=== PATIENT | female | born 1940 | race Caucasian/White ===

== ENCOUNTER → 2019-10-20 | Outpatient (CLI) | payer MEDICARE, OTHER ==
[~2019-10-20] MED LIST: METO50TA18 PO; PROP150T28 PO; TRIA1TAB5 PO; WARF-57 PO
== END | disposition home or self-care (01) ==
LOC: SHCH 08:43
PROVIDERS: ATTEND Internal Medicine Cardiovascular Disease
DX: I08.3 Combined rheumatic disorders of mitral, aortic and tricuspid valves (principal); I48.0 Paroxysmal atrial fibrillation
CPT/HCPCS: 93306

== ENCOUNTER 2019-12-04 05:36 | Observation (INO) | payer MEDICARE, OTHER ==
[2019-12-02 12:09] VITALS: BP 119/72
[2019-12-02 12:13] LABS: EOSINOPHILS % (AUTO) 2.4 % (0.0-8.0); HEMATOCRIT 48.8 % (36-48); LYMPHOCYTES % (AUTO) 40.4 % (21.0-51.0); MEAN CORPUSCULAR HEMOGLOBIN 30.9 pg (27.0-33.0); MEAN CORPUSCULAR HGB CONC 31.8 g/dL (32.0-36.0); MEAN CORPUSCULAR VOLUME 97.4 fL (79-99); MONOCYTES % (AUTO) 8.1 % (3.0-13.0); NEUTROPHILS % (AUTO) 47.9 % (40.0-77.0); PLATELET COUNT (AUTO) 128 K/uL (130-400); RED BLOOD CELL COUNT(AUTO) 5.01 MIL/uL (4.00-5.50); RED CELL DISTRIBUTION WIDTH 13.2 % (11.0-15.5); WHITE BLOOD COUNT (AUTO) 5.1 K/uL (4.8-10.8)
[2019-12-02 12:16] LABS: CREATININE 1.3 mg/dL (0.5-1.5); POTASSIUM 3.3 mmol/L (3.5-5.1)
[2019-12-02 12:23] LABS: INR 2.43 (0.85-1.15); PARTIAL THROMBOPLASTIN TIME 32.2 SEC (26.3-35.5); PROTHROMBIN TIME 24.7 SEC (9.6-11.6)
--- NOTE | 2019-12-03 10:34 | NUR ---
labs pt/inr reported to dr. larson further orders given and will carried out
--- NOTE | 2019-12-03 16:41 | NUR ---
LABS REPORTED ABNORMAL POTASSIUM/ PLATELET LEVEL. ORDERS RECEIVED TO REDRAW BMP ON DAY OF PROCEDURE.
[~2019-12-04] VITALS: Ht 175.3 cm; Wt 83.5 kg
[2019-12-04] VITALS (12 sets, daily range): BP systolic 97–131; BP diastolic 54–75
[2019-12-04] MEDS: VANCOMYCIN 1GM+NS 250ML 250 ML IV SCH (05:00)
[~2019-12-04 05:36] MED LIST changes: +ATOR40TA71 PO; +CARV12.511 PO; +FURO-151 PO; -METO50TA18 PO; +METO5TAB7 PO; +POTA-79 PO; -PROP150T28 PO; -TRIA1TAB5 PO; +vitamin D3 PO; +vitamin b12 PO
[2019-12-04] MEDS ORDERED: SODIUM CHLORIDE 0.9% 1000ML 1,000 ML IV ONE (07:23)
[2019-12-04 07:28] LABS: CREATININE 1.1 mg/dL (0.5-1.5)
[2019-12-04 07:29] LABS: INR 1.61 (0.85-1.15); PARTIAL THROMBOPLASTIN TIME 28.5 SEC (26.3-35.5); PROTHROMBIN TIME 16.6 SEC (9.6-11.6)
[2019-12-04] MEDS: POTASSIUM CHLORIDE 10MEQ/100ML 10 MEQ/100 ML ML IV SCH (07:41)
[2019-12-04] MEDS ORDERED: BUPIVACAINE/PF 0.25% 30ML VIAL IJ ONE (07:44)
[2019-12-04] MEDS ORDERED: MIDAZOLAM HCL 1 MG/ML 2ML VIAL ONE ×3 (07:44→09:20)
[2019-12-04] MEDS ORDERED: CEFAZOLIN SODIUM 1 GM VIAL ONE (07:44)
[2019-12-04] MEDS ORDERED: IODIXANOL 320 MG/ML 100 ML VIAL ONE (07:44)
[2019-12-04] MEDS ORDERED: LIDOCAINE HCL 1% MDV 50ML VIAL ONE (07:45)
[2019-12-04] MEDS ORDERED: LIDOCAINE HCL 2% 20ML ONE (07:45)
[2019-12-04] MEDS ORDERED: MEPERIDINE-PF 25 MG/ML SYG ONE ×3 (07:45→09:20)
[2019-12-04] MEDS ORDERED: VANCOMYCIN 1GM+NS 250ML 500 ML IV ONE (08:04)
[2019-12-04] MEDS ORDERED: HEPARIN SODIUM 1000UNIT/ML 10ML VIAL ONE (09:08)
[2019-12-04 12:57] LABS: POTASSIUM 3.1 mmol/L (3.5-5.1)
[2019-12-04] MEDS ORDERED: TRAMADOL HCL 50 MG TABLET PO PRN ×2 (15:15)
--- NOTE | 2019-12-04 16:39 | NUR ---
[id number] patient's daughter signed VIZCARRA Letter,I faxed VIZCARRA Letter to [phone] and placed in chart under consent tab
[2019-12-04] MEDS ORDERED: WARFARIN SODIUM 5 MG TAB PO SCH (17:00)
[2019-12-04] MEDS ORDERED: ATORVASTATIN CALCIUM 40 MG TABLET PO SCH (21:00)
[2019-12-04] MEDS: CARVEDILOL 6.25 MG TABLET PO SCH (21:29)
[2019-12-04] MEDS: FUROSEMIDE 20 MG TABLET PO SCH (21:29)
[2019-12-05 04:15] VITALS: BP 116/74
[2019-12-05] MEDS: VANCOMYCIN 1GM+NS 250ML 250 ML IV SCH (05:00)
[2019-12-05 05:11] LABS: BASOPHILS % (AUTO) 0.3 % (0.0-5.0); EOSINOPHILS % (AUTO) 0.6 % (0.0-8.0); LYMPHOCYTES % (AUTO) 23.5 % (21.0-51.0); MEAN CORPUSCULAR HEMOGLOBIN 30.4 pg (27.0-33.0); MEAN CORPUSCULAR HGB CONC 31.3 g/dL (32.0-36.0); MONOCYTES % (AUTO) 7.4 % (3.0-13.0); PLATELET COUNT (AUTO) 104 K/uL (130-400); RED BLOOD CELL COUNT(AUTO) 4.64 MIL/uL (4.00-5.50); RED CELL DISTRIBUTION WIDTH 12.9 % (11.0-15.5); WHITE BLOOD COUNT (AUTO) 6.4 K/uL (4.8-10.8)
[2019-12-05 05:23] LABS: CREATININE 0.9 mg/dL (0.5-1.5); POTASSIUM 3.3 mmol/L (3.5-5.1)
[2019-12-05 07:00] VITALS: BP 101/59
[2019-12-05] MEDS: POTASSIUM CHLORIDE 10MEQ/100ML 10 MEQ/100 ML ML IV SCH (07:39)
[2019-12-05] MEDS: FUROSEMIDE 20 MG TABLET PO SCH (08:13)
[2019-12-05] MEDS: CARVEDILOL 6.25 MG TABLET PO SCH (08:14)
[2019-12-05 11:00] VITALS: BP 104/64
--- NOTE | 2019-12-05 15:00 | NUR ---
HL REMOVED, CATHETER INTACT. EXTENSIVE DISCHARGE INSTRUCTIONS GIVEN TO PT. AND DAUGHTER AT BEDSIDE, VERBALIZED MUTUAL UNDERSTANDING. LEFT ARM WITH SLING IN PLACE. REMINDED OF LEFT ARM RESTRICTIONS, VERBALIZED MUTUAL UNDERSTANDING.
== END 2019-12-05 15:20 | disposition home or self-care (01) ==
LOC: DAH 05:36 → 2AH 05:37
PROVIDERS: ADMIT Internal Medicine; ATTEND Internal Medicine
DX: I42.8 Other cardiomyopathies (principal); I48.21 Permanent atrial fibrillation; I11.0 Hypertensive heart disease with heart failure; I50.22 Chronic systolic (congestive) heart failure; E78.5 Hyperlipidemia, unspecified; G20 Parkinson's disease; Z86.73 Personal history of transient ischemic attack (TIA), and cerebral infarction without residual deficits; Z79.899 Other long term (current) drug therapy; Z79.01 Long term (current) use of anticoagulants; Z88.0 Allergy status to penicillin; Z88.5 Allergy status to narcotic agent; Z88.6 Allergy status to analgesic agent
CPT/HCPCS: 33225; 33249; 36415 ×3; 71045; 80048 ×4; 85025 ×2; 85610 ×2; 85730 ×2; 93650; A4215; A4216; A4221; A4222; A4223 ×3; A4606; A4649 ×2; A4663; C1732; C1769 ×2; C1882; C1894; C1895; C1900; G0378 ×20; J1644; J2175 ×3; J2250 ×3; J3370; J3490 ×3; J7030; Q9967; 93005; 99156; 99157; J0690

== ENCOUNTER → 2021-12-07 | Outpatient (CLI) | payer MEDICARE, OTHER | END | disposition home or self-care (01) | LOC: RAH 09:07 | PROVIDERS: ATTEND Family Medicine | DX: K83.8 Other specified diseases of biliary tract (principal); I70.0 Atherosclerosis of aorta; R79.89 Other specified abnormal findings of blood chemistry | CPT/HCPCS: 76700 ==

== ENCOUNTER → 2022-02-16 | Outpatient (CLI) | payer MEDICARE, OTHER | END | disposition home or self-care (01) | LOC: DAH 10:00 → EDSTATUS 02-23 07:20 | PROVIDERS: ATTEND Internal Medicine Gastroenterology | DX: Z01.818 Encounter for other preprocedural examination (principal); R93.2 Abnormal findings on diagnostic imaging of liver and biliary tract; R94.5 Abnormal results of liver function studies; Z88.0 Allergy status to penicillin; Z88.6 Allergy status to analgesic agent | CPT/HCPCS: 87635; C9803 ==

== ENCOUNTER → 2022-11-05 | Outpatient (CLI) | payer MEDICARE, OTHER | END | disposition home or self-care (01) | LOC: RAH 10:17 | PROVIDERS: ATTEND Internal Medicine | DX: R93.2 Abnormal findings on diagnostic imaging of liver and biliary tract (principal) | CPT/HCPCS: 74018 ==

== ENCOUNTER 2023-12-05 14:43 | Inpatient (IN) | payer MEDICARE, OTHER ==
[~2023-12-05] VITALS: Ht 175.3 cm; Wt 75.2 kg
[2023-12-05 15:34] LABS: BASOPHILS # (AUTO) 0.02 K/uL (0.00-0.20); BASOPHILS % (AUTO) 0.2 % (0.0-5.0); HEMATOCRIT 46.3 % (36-48); IMMATURE GRANULOCYTE ABSOLUTE 0.03 K/uL (0-1); LYMPHOCYTES # (AUTO) 1.7 K/uL (1.0-4.8); LYMPHOCYTES % (AUTO) 19.7 % (21.0-51.0); MEAN CORPUSCULAR HEMOGLOBIN 31.7 pg (27.0-33.0); MEAN CORPUSCULAR HGB CONC 31.5 g/dL (32.0-36.0); MEAN CORPUSCULAR VOLUME 100.4 fL (79-99); MONOCYTES # (AUTO) 0.6 K/uL (0.1-1.0); MONOCYTES % (AUTO) 7.1 % (3.0-13.0); NEUTROPHILS # (AUTO) 6.3 K/uL (1.8-7.7); NEUTROPHILS % (AUTO) 72.7 % (40.0-77.0); PLATELET COUNT (AUTO) 64 K/uL (130-400); RED BLOOD CELL COUNT(AUTO) 4.61 MIL/uL (4.00-5.50); RED CELL DISTRIBUTION WIDTH 13.1 % (11.0-15.5); WHITE BLOOD COUNT (AUTO) 8.6 K/uL (4.8-10.8)
[2023-12-05 16:01] LABS: CREATININE 0.9 mg/dL (0.5-1.5)
[2023-12-05 16:06] LABS: ALBUMIN 3.3 g/dL (3.5-5.0); BILIRUBIN,TOTAL 0.6 mg/dL (0.2-1.0); TOTAL PROTEIN, SERUM 7.1 g/dL (6.0-8.3)
[2023-12-05 18:22] LABS: APPEARANCE,URINE CLOUDY (CLEAR); BILIRUBIN,URINE NEGATIVE (NEGATIVE); COLOR,URINE DARK YELLOW (YELLOW); GLUCOSE, URINE (UA) NEGATIVE (NEGATIVE); KETONES,URINE NEGATIVE (NEGATIVE); LEUKOCYTE ESTERASE ,URINE MODERATE Leu/uL (NEGATIVE); NITRATE,URINE POSITIVE (NEGATIVE); OCCULT BLOOD,URINE NEGATIVE (NEGATIVE); PROTEIN,URINE TRACE mg/dL (NEGATIVE); UROBILINOGEN,URINE 0.2 mg/dL (0.2-1.0)
[2023-12-05 18:30] LABS: ADD UA MICROSCOPIC YES
[2023-12-05] MEDS ORDERED: ALBUTEROL 0.083% 2.5 MG/3 ML INH IH PRN (19:00)
[2023-12-05] MEDS ORDERED: TEMAZEPAM 15 MG CAPSULE PO PRN (19:00)
[2023-12-05] MEDS ORDERED: HYDRALAZINE 20MG/ML VIAL IV PRN (19:00)
[2023-12-05] MEDS ORDERED: ONDANSETRON 4MG INJ IVP PRN (19:00)
[2023-12-05] MEDS ORDERED: DOCUSATE SODIUM 100 MG CAP PO PRN (19:00)
[2023-12-05] MEDS: IPRATROPIUM 0.5 MG/2.5 ML INH IH SCH (19:30)
[2023-12-05] MEDS: ALBUTEROL 0.083% 2.5 MG/3 ML INH IH SCH (19:30)
[2023-12-05] MEDS ORDERED: POTASSIUM CHLORIDE 20MEQ/100ML 100 ML IV PRN (19:30)
[2023-12-05] MEDS ORDERED: DEXTROSE 50%-WATER 50 ML DISP.SYRIN IV PRN (19:30)
[2023-12-05] MEDS ORDERED: GLUCAGON 1MG KIT 1 MG ML IM PRN (19:30)
[2023-12-05 19:37] LABS: BACTERIA,URINE Moderate /HPF (None Seen); RBC,URINE 0-1 /HPF (0-1); SQUAMOUS EPITHELIAL CELL,UR Rare /HPF (0-2); WBC,URINE 26-50 /HPF (0-1)
[2023-12-05 19:38] LABS: COARSE GRANULAR CASTS,URINE 0-2 /LPF (None Seen); RENAL EPITHELIAL CELLS,URINE Rare /HPF (None Seen)
[2023-12-05 20:04] LABS: INFLUENZA TYPE A Negative For Type A (NEGATIVE); INFLUENZA TYPE B Negative For Type B (NEGATIVE)
[2023-12-05 20:51] LABS: SARS-CoV-2, RNA, NAAT POSITIVE SARS CoV-2 (NEGATIVE)
[2023-12-05] MEDS: INSULIN HUMULIN R 100 UNIT/ML 3ML SQ SCH (21:00)
[2023-12-05 21:35] VITALS: PULSE 82; RESP 28; O2SAT 96
[2023-12-05] MEDS: LEVOFLOXACIN 500 MG/D5W 100 ML 100 ML IV SCH (22:10)
[2023-12-05] MEDS: SOLU-MEDROL 125MG VIAL IVP SCH (22:11)
[2023-12-05 23:15] VITALS: BP 150/75; PULSE 78; RESP 18
[2023-12-05 23:33] VITALS: O2SAT 97
[2023-12-06] VITALS (12 sets, daily range): BP systolic 117–152; BP diastolic 69–80; PULSE 74–89; RESP 14–20; O2SAT 96–99
[2023-12-06] MEDS ORDERED: IPRATROPIUM 0.5 MG/2.5 ML INH IH SCH
[2023-12-06] MEDS: CARVEDILOL 12.5 MG TABLET PO SCH (00:27)
[2023-12-06 06:24] LABS: BASOPHILS # (AUTO) 0.01 K/uL (0.00-0.20); BASOPHILS % (AUTO) 0.2 % (0.0-5.0); HEMATOCRIT 47.1 % (36-48); IMMATURE GRANULOCYTE ABSOLUTE 0.02 K/uL (0-1); LYMPHOCYTES # (AUTO) 1.1 K/uL (1.0-4.8); LYMPHOCYTES % (AUTO) 16.9 % (21.0-51.0); MEAN CORPUSCULAR HEMOGLOBIN 31.6 pg (27.0-33.0); MEAN CORPUSCULAR HGB CONC 32.1 g/dL (32.0-36.0); MEAN CORPUSCULAR VOLUME 98.5 fL (79-99); MONOCYTES # (AUTO) 0.1 K/uL (0.1-1.0); MONOCYTES % (AUTO) 1.9 % (3.0-13.0); NEUTROPHILS # (AUTO) 5.1 K/uL (1.8-7.7); NEUTROPHILS % (AUTO) 80.7 % (40.0-77.0); PLATELET COUNT (AUTO) 55 K/uL (130-400); RED BLOOD CELL COUNT(AUTO) 4.78 MIL/uL (4.00-5.50); RED CELL DISTRIBUTION WIDTH 13.1 % (11.0-15.5); WHITE BLOOD COUNT (AUTO) 6.3 K/uL (4.8-10.8)
[2023-12-06 06:38] LABS: CREATININE 0.6 mg/dL (0.5-1.5); MAGNESIUM 1.7 mg/dL (1.80-2.40); PHOSPHORUS 3.6 mg/dL (2.5-4.9); POTASSIUM 4.3 mmol/L (3.5-5.1)
[2023-12-06] MEDS: FUROSEMIDE 40MG VIAL IV SCH (09:49)
[2023-12-06] MEDS: PANTOPRAZOLE 40 MG/VIAL IVP SCH (09:50)
[2023-12-06] MEDS: KETOROLAC 15MG/ML VIAL (15MG/ML) IM PRN (09:54)
[2023-12-06] MEDS: ENOXAPARIN SODIUM 40 MG/0.4 ML SYRINGE SQ SCH (09:57)
[2023-12-06] MEDS ORDERED: MAGNESIUM 2GM PREMIX 50ML 50 ML IV PRN (10:00)
[2023-12-06] MEDS: MAGNESIUM 2GM PREMIX 50ML 50 ML IV PRN (10:58)
[2023-12-06] MEDS ORDERED: WARFARIN SODIUM 5 MG TAB PO SCH (14:00)
[2023-12-06] MEDS: WARFARIN SODIUM 5 MG TAB PO SCH (16:26)
[2023-12-06] MEDS: LACTULOSE 20 GM/30 ML UDCUP PO PRN (17:58)
[2023-12-06] MEDS: ATORVASTATIN 40 MG TABLET PO SCH (21:10)
[2023-12-06] MEDS: SOLU-MEDROL 40MG VIAL IVP SCH (21:10)
[2023-12-07] VITALS (14 sets, daily range): BP systolic 100–159; BP diastolic 59–88; PULSE 72–82; RESP 16–20; O2SAT 95–97
[2023-12-07] MEDS: SOLU-MEDROL 40MG VIAL IVP SCH (06:02)
[2023-12-07 06:15] LABS: BASOPHILS # (AUTO) 0.01 K/uL (0.00-0.20); BASOPHILS % (AUTO) 0.1 % (0.0-5.0); HEMATOCRIT 48.2 % (36-48); IMMATURE GRANULOCYTE ABSOLUTE 0.03 K/uL (0-1); LYMPHOCYTES # (AUTO) 1.3 K/uL (1.0-4.8); LYMPHOCYTES % (AUTO) 11.3 % (21.0-51.0); MEAN CORPUSCULAR HEMOGLOBIN 31.9 pg (27.0-33.0); MEAN CORPUSCULAR HGB CONC 32.8 g/dL (32.0-36.0); MEAN CORPUSCULAR VOLUME 97.4 fL (79-99); MONOCYTES # (AUTO) 0.5 K/uL (0.1-1.0); MONOCYTES % (AUTO) 4.2 % (3.0-13.0); NEUTROPHILS # (AUTO) 9.5 K/uL (1.8-7.7); NEUTROPHILS % (AUTO) 84.1 % (40.0-77.0); PLATELET COUNT (AUTO) 54 K/uL (130-400); RED BLOOD CELL COUNT(AUTO) 4.95 MIL/uL (4.00-5.50); RED CELL DISTRIBUTION WIDTH 12.7 % (11.0-15.5); WHITE BLOOD COUNT (AUTO) 11.3 K/uL (4.8-10.8)
[2023-12-07] MEDS ORDERED: LOSA100T59 PO (06:18)
[2023-12-07] MEDS ORDERED: AMLO-257 PO (06:18)
[2023-12-07] MEDS ORDERED: VITA1CAP PO (06:18)
[2023-12-07] MEDS ORDERED: ASCO500C18 PO (06:18)
[2023-12-07] MEDS ORDERED: CARV25TA PO (06:18)
[2023-12-07] MEDS ORDERED: FOLI0.8C PO (06:18)
[2023-12-07 06:21] LABS: CREATININE 0.8 mg/dL (0.5-1.5); MAGNESIUM 1.8 mg/dL (1.80-2.40); POTASSIUM 3.3 mmol/L (3.5-5.1)
[2023-12-07] MEDS: KCL 20 MEQ ERTAB PO PRN (06:44)
[2023-12-07 08:12] LABS: INR 3.88 (0.85-1.15); PROTHROMBIN TIME 41.2 SEC (9.6-11.6)
[2023-12-07] MEDS: CEFTRIAXONE 2GM VIAL IVPB SCH (09:10)
[2023-12-07] MEDS: AZITHROMYCIN 500MG+NS 250ML 250 ML IVPB SCH (09:10)
[2023-12-07] MEDS: POTASSIUM CHLORIDE 10% ELIXIR 20 MEQ/15 ML UDCUP PO PRN (09:11)
[2023-12-07] MEDS ORDERED: WARFARIN SODIUM 2.5 MG TAB PO SCH (16:00)
[2023-12-07] MEDS: CARVEDILOL 12.5 MG TABLET PO SCH (21:01)
[2023-12-08] VITALS (12 sets, daily range): BP systolic 119–156; BP diastolic 73–88; PULSE 73–92; RESP 17–22; O2SAT 94–96
[2023-12-08 06:26] LABS: BASOPHILS # (AUTO) 0.02 K/uL (0.00-0.20); BASOPHILS % (AUTO) 0.2 % (0.0-5.0); HEMATOCRIT 50.2 % (36-48); IMMATURE GRANULOCYTE ABSOLUTE 0.06 K/uL (0-1); LYMPHOCYTES # (AUTO) 1.3 K/uL (1.0-4.8); LYMPHOCYTES % (AUTO) 10.1 % (21.0-51.0); MEAN CORPUSCULAR HEMOGLOBIN 31.5 pg (27.0-33.0); MEAN CORPUSCULAR HGB CONC 32.7 g/dL (32.0-36.0); MEAN CORPUSCULAR VOLUME 96.4 fL (79-99); MONOCYTES # (AUTO) 0.3 K/uL (0.1-1.0); MONOCYTES % (AUTO) 2.7 % (3.0-13.0); NEUTROPHILS # (AUTO) 11.1 K/uL (1.8-7.7); NEUTROPHILS % (AUTO) 86.5 % (40.0-77.0); PLATELET COUNT (AUTO) 64 K/uL (130-400); RED BLOOD CELL COUNT(AUTO) 5.21 MIL/uL (4.00-5.50); RED CELL DISTRIBUTION WIDTH 12.7 % (11.0-15.5); WHITE BLOOD COUNT (AUTO) 12.8 K/uL (4.8-10.8)
[2023-12-08 06:43] LABS: INR 3.7 (0.85-1.15); PROTHROMBIN TIME 39.4 SEC (9.6-11.6)
[2023-12-08 06:46] LABS: CREATININE 0.8 mg/dL (0.5-1.5); POTASSIUM 3.7 mmol/L (3.5-5.1)
[2023-12-08 09:41] LABS: ABG BASE EXCESS 6.2 mmol/L (-2.0-3.0); ABG HCO3 30.7 mmol/L (21.0-28.0); ABG OXYGEN SATURATION 91.5 % (95.0-99.0); ABG PCO2 44 mmHg (32-45); ABG PH 7.466 (7.35-7.450); VENT MODE, BG RA (ROOM AIR)
[2023-12-08] MEDS: LOSARTAN 100 MG TABLET PO SCH (10:11)
[2023-12-08] MEDS: DEXAMETHASONE SOD PHOSPHATE 4 MG/ML 1ML VIAL IV SCH (11:59)
[2023-12-08 15:51] LABS: INR 3.26 (0.85-1.15)
[2023-12-08] MEDS ORDERED: WARFARIN SODIUM 2.5 MG TAB PO SCH (16:00)
[2023-12-08] MEDS: FUROSEMIDE 20MG VIAL IV SCH (17:38)
[2023-12-08] MEDS: INSULIN GLARGINE 100 UNITS/ML 10 ML VIAL SQ SCH (20:53)
[2023-12-08] MEDS: SODIUM CHLORIDE 3% FOR INHALATION 4 ML/AMP VIAL.NEB IH ONE (23:02)
[2023-12-09] VITALS (12 sets, daily range): BP systolic 116–152; BP diastolic 73–87; PULSE 75–86; RESP 18–20; O2SAT 96–99
[2023-12-09 05:54] LABS: BASOPHILS # (AUTO) 0.01 K/uL (0.00-0.20); BASOPHILS % (AUTO) 0.1 % (0.0-5.0); HEMATOCRIT 50.5 % (36-48); IMMATURE GRANULOCYTE ABSOLUTE 0.07 K/uL (0-1); LYMPHOCYTES # (AUTO) 0.8 K/uL (1.0-4.8); LYMPHOCYTES % (AUTO) 6.7 % (21.0-51.0); MEAN CORPUSCULAR HEMOGLOBIN 31.1 pg (27.0-33.0); MEAN CORPUSCULAR HGB CONC 32.9 g/dL (32.0-36.0); MEAN CORPUSCULAR VOLUME 94.6 fL (79-99); MONOCYTES # (AUTO) 0.7 K/uL (0.1-1.0); MONOCYTES % (AUTO) 5.7 % (3.0-13.0); NEUTROPHILS # (AUTO) 10.8 K/uL (1.8-7.7); NEUTROPHILS % (AUTO) 86.9 % (40.0-77.0); PLATELET COUNT (AUTO) 80 K/uL (130-400); RED BLOOD CELL COUNT(AUTO) 5.34 MIL/uL (4.00-5.50); RED CELL DISTRIBUTION WIDTH 12.8 % (11.0-15.5); WHITE BLOOD COUNT (AUTO) 12.5 K/uL (4.8-10.8)
[2023-12-09 06:06] LABS: CREATININE 0.8 mg/dL (0.5-1.5); HEMOGLOBIN A1C 6.7 % (4.0-6.0); POTASSIUM 3.1 mmol/L (3.5-5.1)
[2023-12-09 08:29] LABS: INR 3.08 (0.85-1.15); PROTHROMBIN TIME 33.2 SEC (9.6-11.6)
[2023-12-09] MEDS: SODIUM CHLORIDE 3% FOR INHALATION 4 ML/AMP VIAL.NEB IH ONE ×2 (09:56→11:51)
[2023-12-09 12:35] LABS: PROTHROMBIN TIME 46.8 SEC (9.6-11.6)
[2023-12-09 12:36] LABS: INR 4.45 (0.85-1.15)
[2023-12-10] VITALS (15 sets, daily range): BP systolic 105–173; BP diastolic 48–86; PULSE 74–90; RESP 16–18; O2SAT 94–98
[2023-12-10 06:30] LABS: BASOPHILS # (AUTO) 0.03 K/uL (0.00-0.20); BASOPHILS % (AUTO) 0.2 % (0.0-5.0); HEMATOCRIT 52.8 % (36-48); IMMATURE GRANULOCYTE ABSOLUTE 0.07 K/uL (0-1); LYMPHOCYTES % (AUTO) 8.2 % (21.0-51.0); MEAN CORPUSCULAR HEMOGLOBIN 31.6 pg (27.0-33.0); MEAN CORPUSCULAR VOLUME 98.7 fL (79-99); MONOCYTES # (AUTO) 0.7 K/uL (0.1-1.0); MONOCYTES % (AUTO) 5.4 % (3.0-13.0); NEUTROPHILS # (AUTO) 10.5 K/uL (1.8-7.7); NEUTROPHILS % (AUTO) 85.6 % (40.0-77.0); PLATELET COUNT (AUTO) 85 K/uL (130-400); RED BLOOD CELL COUNT(AUTO) 5.35 MIL/uL (4.00-5.50); RED CELL DISTRIBUTION WIDTH 12.9 % (11.0-15.5); WHITE BLOOD COUNT (AUTO) 12.2 K/uL (4.8-10.8)
[2023-12-10 06:36] LABS: POTASSIUM 4.2 mmol/L (3.5-5.1)
[2023-12-10 06:47] LABS: INR 2.72 (0.85-1.15); PROTHROMBIN TIME 29.6 SEC (9.6-11.6)
[2023-12-10] MEDS: WARFARIN SODIUM 2.5 MG TAB PO SCH (17:00)
[2023-12-10] MEDS: CARVEDILOL 12.5 MG TABLET PO SCH (21:32)
[2023-12-10] MEDS: LOSARTAN 50 MG TABLET PO SCH (21:32)
[2023-12-11] VITALS (8 sets, daily range): BP systolic 153–160; BP diastolic 86–93; PULSE 71–94; RESP 18–20; O2SAT 95–97
[2023-12-11 05:21] LABS: HEMATOCRIT 51.1 % (36-48); MEAN CORPUSCULAR HEMOGLOBIN 31.1 pg (27.0-33.0); MEAN CORPUSCULAR HGB CONC 31.7 g/dL (32.0-36.0); MEAN CORPUSCULAR VOLUME 98.1 fL (79-99); RED BLOOD CELL COUNT(AUTO) 5.21 MIL/uL (4.00-5.50); RED CELL DISTRIBUTION WIDTH 12.6 % (11.0-15.5); WHITE BLOOD COUNT (AUTO) 10.5 K/uL (4.8-10.8)
[2023-12-11 05:27] LABS: CREATININE 0.7 mg/dL (0.5-1.5); POTASSIUM 3.8 mmol/L (3.5-5.1)
[2023-12-11 05:36] LABS: INR 2.49 (0.85-1.15); PROTHROMBIN TIME 27.2 SEC (9.6-11.6)
[2023-12-11] MEDS: CARVEDILOL 25 MG TABLET PO SCH (09:38)
[2023-12-11 09:46] LABS: INR 2.46 (0.85-1.15); PROTHROMBIN TIME 26.9 SEC (9.6-11.6)
[2023-12-11] MEDS ORDERED: WARFARIN SODIUM 2.5 MG TAB PO SCH (16:00)
== END 2023-12-11 13:30 | DRG 177 ==
LOC: EDH 14:43 → EDHIP 17:33 → OBSVTOIN 17:33 → 3AH 22:21
PROVIDERS: ADMIT Internal Medicine; ATTEND Internal Medicine
DX: U07.1 COVID-19 (principal); I50.43 Acute on chronic combined systolic (congestive) and diastolic (congestive) heart failure; J15.9 Unspecified bacterial pneumonia; J96.01 Acute respiratory failure with hypoxia; D68.9 Coagulation defect, unspecified; I42.0 Dilated cardiomyopathy; I48.21 Permanent atrial fibrillation; Z16.23 Resistance to quinolones and fluoroquinolones; N30.00 Acute cystitis without hematuria; E87.3 Alkalosis; I11.0 Hypertensive heart disease with heart failure; I08.3 Combined rheumatic disorders of mitral, aortic and tricuspid valves; F19.90 Other psychoactive substance use, unspecified, uncomplicated; B96.20 Unspecified Escherichia coli [E. coli] as the cause of diseases classified elsewhere; I27.20 Pulmonary hypertension, unspecified; E86.0 Dehydration; D69.6 Thrombocytopenia, unspecified; I25.10 Atherosclerotic heart disease of native coronary artery without angina pectoris; Z96.649 Presence of unspecified artificial hip joint; Z86.19 Personal history of other infectious and parasitic diseases; Z88.0 Allergy status to penicillin; Z95.810 Presence of automatic (implantable) cardiac defibrillator; Z87.19 Personal history of other diseases of the digestive system; Z90.49 Acquired absence of other specified parts of digestive tract; Z87.891 Personal history of nicotine dependence; Z86.73 Personal history of transient ischemic attack (TIA), and cerebral infarction without residual deficits; Z79.899 Other long term (current) drug therapy; Z79.01 Long term (current) use of anticoagulants
CPT/HCPCS: 36415; 36600; 71045; 71250; 80048; 80053; 81001; 82803; 82948; 83036; 83735; 83880; 84100; 84484; 85025; 85027; 85378; 85610; 87077; 87088; 87186; 87635; 87804; 92610; 93005; 93306; 94640; 94664; C9113; G0378; J0456; J0696; J1100; J1650; J1815; J1885; J1940; J1956; J2920; J2930; J3475

== ENCOUNTER 2024-01-12 13:50 | Emergency (ER) | payer MEDICARE, OTHER ==
[~2024-01-12] VITALS: Ht 180.3 cm; Wt 77.1 kg
[~2024-01-12 13:50] MED LIST changes: +ASCO500C18 PO; -CARV12.511 PO; +CARV25TA PO; +FOLI0.8C PO; -FURO-151 PO; +LOSA100T59 PO; -METO5TAB7 PO; -POTA-79 PO; +VITA1CAP PO; -WARF-57 PO; -vitamin D3 PO; -vitamin b12 PO
[2024-01-12 14:14] VITALS: BP 123/75; PULSE 77; RESP 20; O2SAT 92
[2024-01-12 14:15] LABS: BASOPHILS # (AUTO) 0.04 K/uL (0.00-0.20); BASOPHILS % (AUTO) 0.8 % (0.0-5.0); EOSINOPHILS # (AUTO) 0.07 K/uL (0.00-0.70); EOSINOPHILS % (AUTO) 1.4 % (0.0-8.0); HEMATOCRIT 39.8 % (36-48); IMMATURE GRANULOCYTE ABSOLUTE 0.03 K/uL (0-1); LYMPHOCYTES # (AUTO) 1.5 K/uL (1.0-4.8); LYMPHOCYTES % (AUTO) 29.2 % (21.0-51.0); MEAN CORPUSCULAR HEMOGLOBIN 31.9 pg (27.0-33.0); MEAN CORPUSCULAR HGB CONC 31.7 g/dL (32.0-36.0); MEAN CORPUSCULAR VOLUME 100.8 fL (79-99); MONOCYTES # (AUTO) 0.5 K/uL (0.1-1.0); MONOCYTES % (AUTO) 8.9 % (3.0-13.0); NEUTROPHILS % (AUTO) 59.1 % (40.0-77.0); PLATELET COUNT (AUTO) 174 K/uL (130-400); RED BLOOD CELL COUNT(AUTO) 3.95 MIL/uL (4.00-5.50); RED CELL DISTRIBUTION WIDTH 13.9 % (11.0-15.5); WHITE BLOOD COUNT (AUTO) 5.1 K/uL (4.8-10.8)
[2024-01-12 14:28] LABS: CREATININE 0.7 mg/dL (0.5-1.0); POTASSIUM 4.1 mmol/L (3.5-5.1)
[2024-01-12 14:32] LABS: ALBUMIN 2.2 g/dL (3.5-5.0); BILIRUBIN,TOTAL 0.5 mg/dL (0.2-1.0); MAGNESIUM 1.6 mg/dL (1.80-2.40); TOTAL PROTEIN, SERUM 5.9 g/dL (6.0-8.3)
[2024-01-12 14:40] LABS: B-TYPE NATRIURETIC PEPTIDE 306 pg/mL (0-100)
[2024-01-12] MEDS: FUROSEMIDE 40 MG TABLET PO ONE (15:24)
[2024-01-12] MEDS ORDERED: FUROSEMIDE 40MG VIAL IV ONE (15:30)
[2024-01-12] MEDS ORDERED: FURO-152 PO (15:37)
== END 2024-01-12 15:59 | disposition home or self-care (01) ==
LOC: EDH 13:50
DX: S81.811A Laceration without foreign body, right lower leg, initial encounter (principal); R60.0 Localized edema; E87.70 Fluid overload, unspecified; I50.9 Heart failure, unspecified; Z88.0 Allergy status to penicillin; Z88.5 Allergy status to narcotic agent; Z79.899 Other long term (current) drug therapy; Z60.2 Problems related to living alone; W18.30XA Fall on same level, unspecified, initial encounter; Y93.89 Activity, other specified; Y92.89 Other specified places as the place of occurrence of the external cause; Y99.8 Other external cause status
CPT/HCPCS: 36415; 71045; 73590; 80053; 83735; 83880; 84484; 85025; 93005